=== PATIENT | male | born 1985 | race African-American/Black ===

== ENCOUNTER → 2023-01-02 08:14 | Outpatient (BNVA) | payer OTHER, SELFPAY | PROVIDERS: PCP Internal Medicine; Visit Provider Physician Assistant Surgical ==

== ENCOUNTER 2023-01-30 08:23 | Outpatient (AMB) | payer OTHER, SELFPAY ==
--- NOTE | 2023-01-30 08:32 | A.OFFVIS_ITS ---
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 His goal is to be healthy. He reports first being concerned about his weight since childhood. He has tried multiple methods of weight loss including keto with exercise - was very effective, without permanent results. He lives with his fiance and his 2 children. His sister had LSG with us af ew months ago, and his fiance is in our program now. He works 5- 6 days per week, variable schedule as assembler truck trailer. Works hours 3:30 am to 12 pm. He wakes at: 1 am, bed at 5-6 pm. Also sleeps at home.. Breakfast: 5am - crackers, pastries, sandwich, sunflower seeds -- snacks on these foods until 9-10 am water or Deit Coke. Lunch: 10 am - buys a sandwich and chicken wings and Diet Coke 2pm- Adalgisa has 2 dbl ham burger and a chicken sandwich and Diet Coke Dinner: 4:30 pm - 2 chicken breasts with bbq sauce and 3 corn on the dominguez. water. Vegetables - canned only, 2 d/week. After dinner: nothing after dinner Other snacks: see above Liquids: 3-4 Diet Cokes per day, no fruit juice Alcohol intake: twice a week 1 beer at a time, tobacco: none, marijuana: none Exercise: none,has membership to [employer]: 3 ESS:10 GERD:0 QOL:72 PFS Surgical History History of hip surgery Social History (Updated 08/16/23 @ 08:30 by BROOKLYNN Betts Alcohol intake: current Alcohol intake frequency: holidays/special occasions only Patient Tobacco Use Status: Never used Tobacco Physical Exam Vital Signs: Last Vital Signs Temp 97.6 F 01/30/23 08:39 Pulse 83 01/30/23 08:39 BP 132/74 01/30/23 08:39 Pulse Ox 95 01/30/23 08:39 Oxygen Delivery Method Room Air 01/30/23 08:39 BMI result Body Mass Index 72.7 Const General: cooperative, no acute distress and well developed Nutritional Appearance: obese Orientation/consciousness: patient oriented x3 HEENT Head: Yes normal to inspection Neck Neck: Yes normal visual inspection Thyroid: Thyroid normal Resp Effort & Inspection: normal respiratory effort Auscultation: clear to auscultation bilaterally Cardio Rate: regular rate Rhythm: regular rhythm Heart sounds: S1 normal heart sound present, S2 normal heart sound present and no murmurs GI Inspection: No distended and Yes obesity Palpation (GI): Soft to palpation, nontender and no guarding Skin General skin exam: no rashes or lesions noted and other (warm and dry) Wounds: no wounds Hair: normal Neuro General: patient oriented x3 Extrem General: Yes no pedal edema and Yes no calf tenderness Psych Attitude: cooperative Thought process: Normal thought process present Thought content: Normal thought content present Insight: Good insight present (Psych) Judgement: Good judgement present (Psych) Assessment & Plan Assessment & Plan (1) Morbid obesity: Code(s): E66.01 - Morbid (severe) obesity due to excess calories Plan: This is a 37 yo man with super morbid obesity, HTN, DM on elliquis for hx LLE DVTwho will start SWL program to prepare for bariatric surgery. Blood work, h pylori , CXR, ECG, Abd ULS and UGI have been ordered. She is being scheduled for RD and BH initial consultations. She will start SWL classes and watch at 3 classes before her next appt with Lacie. His fiance is in our program and his sister had LSG with us. Referral made to Hematology at [facility] to evaluate need for continued anticoagulation. 1. Adequate sleep of 7-8 hours per night discussed, with CPAP for at lest 6 hours 2. Healthy meal plan - stop mindless snacking All meals/MR's need to take 20 minutes to complete. Each day - 3 shakes, 1 meal, 1 bar and 1 yogurt for now 3am - shake 5 am -bar 8am - shake 11 am - yogurt or 3 hb eggs 2pm- shake 4:30 pm- dinner of 8 oz lean protein, 8 oz vegetable, 1 serving fruit Will discuss diet Coke at another time. Exercise - Cardio 5 d week = treadmill at speed 3.0, incline 2-6 - to burn 300 calories OR elliptical Will change routine - he will text me weekly. Pt will purchase body composition analyzer (recommended list given to patient) and weight herself weekly. Next appt with me in 3 weeks. Text me with any questions and weekly weights. Patient is morbidly obese and is not considered stable at this time.?I spent a total of 60 minutes reviewing/updating records, examining the patient and counseling the patient on weight management as detailed above. (2) HTN (hypertension), benign: Code(s): I10 - Essential (primary) hypertension (3) Diabetes mellitus: Code(s): E11.9 - Type 2 diabetes mellitus without complications (4) SLOAN on CPAP: Code(s): G47.33 - Obstructive sleep apnea (adult) (pediatric) (5) Hx of deep venous thrombosis: Comment: 2020 after an injury Code(s): Z86.718 - Personal history of other venous thrombosis and embolism (6) Fatty liver: Code(s): K76.0 - Fatty (change of) liver, not elsewhere classified (7) Spinal stenosis: Code(s): M48.00 - Spinal stenosis, site unspecified Orders: Orders Insulin Today E11.9 - Type 2 diabetes mellitus without complications, E66.01 - Morbid (severe) obesity due to excess calories, G47.33 - Obstructive sleep apnea (adult) (pediatric), I10 - Essential (primary) hypertension, K76.0 - Fatty (c hange of) liver, not elsewhere classified, M48.00 - Spinal stenosis, site unspecified, Z86.718 - Personal history of other venous thrombosis and embolism Lipid Panel Today E11.9 - Type 2 diabetes mellitus without complications, E66.01 - Morbid (severe) obesity due to excess calories, G47.33 - Obstructive sleep apnea (adult) (pediatric), I10 - Essential (primary) hypertension, K76.0 - Fatty (change of) liver, not elsewhere classified, M48.00 - Spinal stenosis, site unspecified, Z86.718 - Personal history of other venous thrombosis and embolism IRON PROFILE Today E11.9 - Type 2 diabetes mellitus without complications, E66.01 - Morbid (severe) obesity due to excess calories, G47.33 - Obstructive sleep apnea (adult) (pediatric), I10 - Essential (primary) hypertension, K76.0 - Fatty (change of) liver, not elsewhere classified, M48.00 - Spinal stenosis, site unspecified, Z86.718 - Personal history of other venous thrombosis and embolism Complete Blood Count Auto Diff Today E11.9 - Type 2 diabetes mellitus without complications, E66.01 - Morbid (severe) obesity due to excess calories, G47.33 - Obstructive sleep apnea (adult) (pediatric), I10 - Essential (primary) hypertension, K76.0 - Fatty (change of) liver, not elsewhere classified, M48.00 - Spinal stenosis, site unspecified, Z86.718 - Personal history of other venous thrombosis and embolism Zinc Today E11.9 - Type 2 diabetes mellitus without complications, E66.01 - Morbid (severe) obesity due to excess calories, G47.33 - Obstructive sleep apnea (adult) (pediatric), I10 - Essential (primary) hypertension, K76.0 - Fatty (change of) liver, not elsewhere classified, M48.00 - Spinal stenosis, site unspecified, Z86.718 - Personal history of other venous thrombosis and embolism Comprehensive Met. Panel Today E11.9 - Type 2 diabetes mellitus without complications, E66.01 - Morbid (severe) obesity due to excess calories, G47.33 - Obstructive sleep apnea (adult) (pediatric), I10 - Essential (primary) hypertension, K76.0 - Fatty (change of) liver, not elsewhere classified, M48.00 - Spinal stenosis, site unspecified, Z86.718 - Personal history of other venous thrombosis and embolism C Reactive Protein Today E11.9 - Type 2 diabetes mellitus without complications, E66.01 - Morbid (severe) obesity due to excess calories, G47.33 - Obstructive sleep apnea (adult) (pediatric), I10 - Essential (primary) hypertension, K76.0 - Fatty (change of) liver, not elsewhere classified, M48.00 - Spinal stenosis, site unspecified, Z86.718 - Personal history of other venous thrombosis and embolism Ferritin Today E11.9 - Type 2 diabetes mellitus without complications, E66.01 - Morbid (severe) obesity due to excess calories, G47.33 - Obstructive sleep apnea (adult) (pediatric), I10 - Essential (primary) hypertension, K76.0 - Fatty (change of) liver, not elsewhere classified, M48.00 - Spinal stenosis, site unspecified, Z86.718 - Personal history of other venous thrombosis and embolism PTHI Today E11.9 - Type 2 diabetes mellitus without complications, E66.01 - Morbid (severe) obesity due to excess calories, G47.33 - Obstructive sleep apnea (adult) (pediatric), I10 - Essential (primary) hypertension, K76.0 - Fatty (ch moustapha of) liver, not elsewhere classified, M48.00 - Spinal stenosis, site unspecified, Z86.718 - Personal history of other venous thrombosis and embolism H Pylori Breath Test Today E11.9 - Type 2 diabetes mellitus without complications, E66.01 - Morbid (severe) obesity due to excess calories, G47.33 - Obstructive sleep apnea (adult) (pediatric), I10 - Essential (primary) hypertension, K76.0 - Fatty (change of) liver, not elsewhere classified, M48.00 - Spinal stenosis, site unspecified, Z86.718 - Personal history of other venous thrombosis and embolism Vitamin D 25-OH Total Today E11.9 - Type 2 diabetes mellitus without complications, E66.01 - Morbid (severe) obesity due to excess calories, G47.33 - Obstructive sleep apnea (adult) (pediatric), I10 - Essential (primary) hypertension, K76.0 - Fatty (change of) liver, not elsewhere classified, M48.00 - Spinal stenosis, site unspecified, Z86.718 - Personal history of other venous thrombosis and embolism US abdomen comp w elastography Today E11.9 - Type 2 diabetes mellitus without complications, E66.01 - Morbid (severe) obesity due to excess calories, G47.33 - Obstructive sleep apnea (adult) (pediatric), I10 - Essential (primary) hypertension, K76.0 - Fatty (change of) liver, not elsewhere classified, M48.00 - Spinal stenosis, site unspecified, Z86.718 - Personal history of other venous thrombosis and embolism XR chest 2V Today E11.9 - Type 2 diabetes mellitus without complications, E66.01 - Morbid (severe) obesity due to excess calories, G47.33 - Obstructive sleep apnea (adult) (pediatric), I10 - Essential (primary) hypertension, K76.0 - Fatty (change of) liver, not elsewhere classified, M48.00 - Spinal stenosis, site u nspecified, Z86.718 - Personal history of other venous thrombosis and embolism ECG 12 lead EKG Today E11.9 - Type 2 diabetes mellitus without complications, E66.01 - Morbid (severe) obesity due to excess calories, G47.33 - Obstructive sleep apnea (adult) (pediatric), I10 - Essential (primary) hypertension, K76.0 - Fatty (change of) liver, not elsewhere classified, M48.00 - Spinal stenosis, site unspecified, Z86.718 - Personal history of other venous thrombosis and embolism Vitamin B12 and Folate Today E11.9 - Type 2 diabetes mellitus without complications, E66.01 - Morbid (severe) obesity due to excess calories, G47.33 - Obstructive sleep apnea (adult) (pediatric), I10 - Essential (primary) hypertension, K76.0 - Fatty (change of) liver, not elsewhere classified, M48.00 - Spinal stenosis, site unspecified, Z86.718 - Personal history of other venous thrombosis and embolism Vitamin B1 Today E11.9 - Type 2 diabetes mellitus without complications, E66.01 - Morbid (severe) obesity due to excess calories, G47.33 - Obstructive sleep apnea (adult) (pediatric), I10 - Essential (primary) hypertension, K76.0 - Fatty (change of) liver, not elsewhere classified, M48.00 - Spinal stenosis, site unspecified, Z86.718 - Personal history of other venous thrombosis and embolism Vitamin A Today E11.9 - Type 2 diabetes mellitus without complications, E66.01 - Morbid (severe) obesity due to excess calories, G47.33 - Obstructive sleep apnea (adult) (pediatric), I10 - Essential (primary) hypertension, K76.0 - Fatty (change of) liver, not elsewhere classified, M48.00 - Spinal stenosis, site unspecified, Z86.718 - Personal history of other venous thrombosis and embolism TSH reflex Free T4 Today E11.9 - Type 2 diabetes mellitus without complications, E66.01 - Morbid (severe) obesity due to excess calories, G47.33 - Obstructive sleep apnea (adult) (pediatric), I10 - Essential (primary) hypertension, K76.0 - Fatty (change of) liver, not elsewhere classified, M48.00 - Spinal stenosis, site unspecified, Z86.718 - Personal history of other venous thrombosis and e mbolism Hemoglobin A1c Today E11.9 - Type 2 diabetes mellitus without complications, E66.01 - Morbid (severe) obesity due to excess calories, G47.33 - Obstructive sleep apnea (adult) (pediatric), I10 - Essential (primary) hypertension, K76.0 - Fatty (change of) liver, not elsewhere classified, M48.00 - Spinal stenosis, site unspecified, Z86.718 - Personal history of other venous thrombosis and embolism FL upper GI w air Today E11.9 - Type 2 diabetes mellitus without complications, E66.01 - Morbid (severe) obesity due to excess calories, G47.33 - Obstructive sleep apnea (adult) (pediatric), I10 - Essential (primary) hypertension, K76.0 - Fatty (change of) liver, not elsewhere classified, M48.00 - Spinal stenosis, site unspecified, Z86.718 - Personal history of other venous thrombosis and embolism Referrals Behavioral Health Referral E11.9 - Type 2 diabetes mellitus without compl ications, E66.01 - Morbid (severe) obesity due to excess calories, G47.33 - Obstructive sleep apnea (adult) (pediatric), I10 - Essential (primary) hypertension, K76.0 - Fatty (change of) liver, not elsewhere classified, M48.00 - Spinal stenosis, site unspecified, Z86.718 - Personal history of other venous thrombosis and embolism Hematology & Oncology Referral E66.01 - Morbid (severe) obesity due to excess calories, Z86.718 - Personal history of other venous thrombosis and embolism Nutrition/Dietitian Referral E11.9 - Type 2 diabetes mellitus without complications, E66.01 - Morbid (severe) obesity due to excess calories, G47.33 - Obstructive sleep apnea (adult) (pediatric), I10 - Essential (primary) hypertension, K76.0 - Fatty (change of) liver, not elsewhere classified, M48.00 - Spinal stenosis, site unspecified, Z86.718 - Personal history of other venous thrombosis and embolism Coding Level of Care Code New Pt Level 5 (63881) Diagnoses Morbid obesity E66.01 HTN (hypertension), benign I10 Diabetes mellitus E11.9 SLOAN on CPAP G47.33 Hx of deep venous thrombosis Z86.718 Fatty liver K76.0 Spinal stenosis M48.00
[2023-01-30 08:39] VITALS: BP 132/74; PULSE 83; TEMP 36.4; O2SAT 95; BMI 72.7
== END 2023-01-30 09:48 | disposition home or self-care (01) ==
PROVIDERS: PCP Internal Medicine; Visit Provider Physician Assistant
DX: E66.01 Morbid (severe) obesity due to excess calories (principal); Z68.45 Body mass index [BMI] 70 or greater, adult
CPT/HCPCS: 99205

== ENCOUNTER 2023-01-30 08:23 | Outpatient (REF) | payer OTHER, SELFPAY ==
--- NOTE | ~2023-01-30 | XR_ITS ---
EXAMINATION: XR CHEST 2 VIEWS CLINICAL INFORMATION: Obstructive sleep apnea. COMPARISON: None. TECHNIQUE: Frontal and lateral views of the chest were obtained. FINDINGS: The heart, great vessels, pulmonary vasculature and mediastinum are normal. The lungs show no focal infiltrate, effusion or pneumothorax. There is no acute osseous abnormality. XR/XR chest 2V IMPRESSION: No active cardiopulmonary disease.
--- NOTE | 2023-01-30 10:01 | ECG_ITS ---
Test Reason : g47.33 Blood Pressure : / mmHG Vent. Rate : 080 BPM Atrial Rate : 080 BPM P-R Int : 108 ms QRS Dur : 114 ms QT Int : 392 ms P-R-T Axes : 000 031 000 degrees QTc Int : 452 ms Poor data quality, interpretation may be adversely affected Sinus rhythm with short MI Otherwise normal ECG No previous ECGs available Referred By: Edyta Lambert Electronically Signed By:LAINEY ZARAGOZA
[2023-01-30 10:16] LABS: MANUAL DIFF FLAG NO
[2023-01-30 10:40] LABS: Basophils Absolute Auto 0.1 X10*3/uL (0.0-0.2); Basophils Percent Auto 0.8 % (0-2); Eosinophils Absolute Auto 0.6 X10*3/uL (0.0-0.4); Eosinophils Percent Auto 8.2 % (0-4); Hematocrit 45.2 % (42.0-52.0); Hemoglobin 14.3 g/dl (14.0-18.0); Imm Gran Abs Auto 0.05 X10*3/uL (0.00-0.03); Imm Gran Pct Auto 0.7 % (0.0-0.4); Lymphocytes Absolute Auto 2.1 X10*3/uL (1.2-4.9); Lymphocytes Percent Auto 30.2 % (20-40); Mean Corpuscular HGB Conc 31.6 g/dl (31.0-36.0); Mean Corpuscular Volume 82.3 fL (80.0-98.0); Mean Platelet Volume 11.8 fL (9.4-12.4); Monocytes Absolute Auto 0.5 X10*3/uL (0.1-1.2); Monocytes Percent Auto 7.2 % (2-11); Neutrophils Absolute Auto 3.8 x10*3/uL (2.0-8.3); Neutrophils Percent Auto 52.9 % (45-73); Platelet Count 293 X10*3/uL (160-400); Red Blood Count 5.49 X10*6/uL (4.60-5.80); Red Cell Distribution Width 14.4 % (11.0-16.0); White Blood Count 7.1 X10*3/uL (4.8-10.8)
[2023-01-30 11:00] LABS: Estimated Average Glucose 131 mg/dL; Hemoglobin A1c % 6.2 % (<6.0)
[2023-01-30 11:17] LABS: Alanine Aminotransferase 24 U/L (0-40); Albumin Level 4.3 g/dL (3.5-5.0); Alkaline Phosphatase 55 U/L (39-117); Anion Gap 11 (12-20); Aspartate Amino Transferase 20 U/L (5-37); Bilirubin Total 1.2 mg/dL (0.0-1.0); Blood Urea Nitrogen 18 mg/dL (9-16); Calcium 10.5 mg/dL (8.4-10.2); Carbon Dioxide 27 mmol/L (22-29); Chloride 103 mmol/L (96-108); Cholesterol 174 mg/dL (<200); Estimated Glomerular Filt Rate > 60; Glucose Random 99 mg/dL (60-115); HDL Cholesterol 28 mg/dL (>40); Iron 66 mcg/dL (45-160); LDL Cholesterol Calculated 119 mg/dL (<100); Percent Iron Saturation 21 % (15-50); Potassium 4.6 mmol/L (3.3-5.1); Sodium 136 mmol/L (135-145); Total Iron Binding Capacity 317 mcg/dL (228-428); Total Protein 8.7 g/dL (6.5-8.0); Triglycerides 137 mg/dL (<150); Unsaturated Iron Binding 251 ug/dL
[2023-01-30 11:35] LABS: Ferritin 270 ng/mL (20-250); Insulin 37 uU/mL (2-29); TSH reflex Free T4 1.86 uIU/mL (0.32-4.0); Vitamin D 25-OH Total 24.3 ng/mL (>30)
[2023-01-30 11:39] LABS: Vitamin B12 307 pg/mL (200-900)
[2023-02-01 13:52] LABS: H Pylori Breath Test Negative (Negative)
[2023-02-01 23:58] LABS: Calcium (PTHI) 9.7 mg/dL (8.6-10.3); PTHI 38 pg/mL (16-77)
[2023-02-02 17:13] LABS: Zinc 76 mcg/dL (60-130)
[2023-02-03 15:19] LABS: Vitamin B1 7 nmol/L (8-30)
[2023-02-06 17:43] LABS: Vitamin A 51 mcg/dL (38-98)
== END 2023-01-30 08:24 | disposition home or self-care (01) ==
LOC: HO.LAB 08:23
PROVIDERS: PCP Internal Medicine; Visit Provider Physician Assistant
DX: E66.01 Morbid (severe) obesity due to excess calories (principal); I10 Essential (primary) hypertension; E11.9 Type 2 diabetes mellitus without complications; G47.33 Obstructive sleep apnea (adult) (pediatric); K76.0 Fatty (change of) liver, not elsewhere classified; M48.00 Spinal stenosis, site unspecified; Z86.718 Personal history of other venous thrombosis and embolism
CPT/HCPCS: 36415; 71046; 80053; 80061; 82306; 82607; 82728; 82746; 83013; 83036; 83525; 83540; 83970; 84425; 84443; 84590; 84630; 85025; 86140; 93005; 99211

== ENCOUNTER 2023-02-13 13:49 | Outpatient (AMB) | payer OTHER, SELFPAY ==
--- NOTE | 2023-02-13 13:38 | MHC.AMNUTRGE ---
Intake Intake Visit Reasons: VIDEO Initial Nutrition SW Allergies humolog Allergy (Mild, Uncoded 01/30/23 09:41) Headache HPI Nutrition Presentation Reason for consult elevated BMI Diet Assmnt Details Premier premade shakes at 5am / 8am / 2pm plus apple and 2-3 hardboiled eggs dinner chicken and cabbage - 8oiz each, his weighs on a food scale Has two kids (6 and 7 years old) all they want is Rodriguez daughter has issues with her weight as welll. We talked about trying to change the whole familys eating habits but pt not receptive. tried to help pt recognize that having highly tempting foods around could be triggering Exercise: nothing yet ; pt reports he hasn't even considered this. closed off to discussion. [facility] online classes: none Previous weight loss methods attempted keto 76lbs lost, then ate chaidez and triggered to eat Dietary counseling reduction Who buys your food self Who prepares/cooks your food self Meal frequency regular: breakfast (9am (but starts works 1am)), lunch ([employer] or fast food ), dinner and snacks (snacked all day ) Lifestyle Eating out 4 or more times/week Food frequency Fruit: occasionally, Vegetables: occasionally (broccoli, carrots, green beans ), Grains/pasta/breads/cereal (carbs): daily, Meats/poultry/fish (protein): daily, Meat substitutes/nuts/seeds/legumes: daily, Processed foods/meats: daily, Restaurants/fast foods: daily, Water: daily, Soda: daily (diet coke ) and Coffee: daily (1c per day 32oz ) Diagnosis Nutrition problem #1 overweight/obesity As related to (etiology) #1 excess energy intake and physical inactivity As evidenced by (sign/symptom) #1 high BMI Monitoring/Goals Nutrition problem monitoring total energy intake, HgbA1c, level of knowledge/skill, total PRO intake, glucose, fasting, total CHO intake and weight Outcome progress progressing Learning/Education Readiness to learn good Stages of change action Educational materials provided Yes Most Recent Diabetes Results: Cholesterol 174 mg/dL (<200) 01/30/23 HDL Cholesterol 28 mg/dL (>40) L 01/30/23 Triglycerides 137 mg/dL (<150) 01/30/23 Creatinine 1.12 mg/dL (0.5-1.4) 01/30/23 Blood Urea Nitrogen 18 mg/dL (9-16) H 01/30/23 Sodium 136 mmol/L (135-145) 01/30/23 Potassium 4.6 mmol/L (3.3-5.1) 01/30/23 Chloride 103 mmol/L (96-108) 01/30/23 Carbon Dioxide 27 mmol/L (22-29) 01/30/23 Calcium 10.5 mg/dL (8.4-10.2) H 01/30/23 AST 20 U/L (5-37) 01/30/23 ALT 24 U/L (0-40) 01/30/23 Total Protein 8.7 g/dL (6.5-8.0) H 01/30/23 Albumin 4.3 g/dL (3.5-5.0) 01/30/23 PFSH Surgical History History of hip surgery Social History Alcohol intake: current Alcohol intake frequency: holidays/special occasions only Patient Tobacco Use Status: Never used Tobacco Assessment & Plan Assessment & Plan (1) Morbid obesity: Code(s): E66.01 - Morbid (severe) obesity due to excess calories Patient Instructions: question readiness for WLS. complete online classes and f/u wtih me in 6 weeks Telehealth Telehealth Location of provider rendering services: practice address Location of patient: address on file Patient Identification confirmed using: Name, : Yes Telehealth method: video Patient verbally consented to treatment: Yes Patient verbally consented to billing insurance company: Yes Patient informed of any privacy concerns related to visit: Yes Minutes spent on Phone/Video with Pt.: 30 Coding Level of Care Code Nutr Indiv Intake (17245) Diagnoses Morbid obesity E66.01 Time Spent (min) 30
== END 2023-02-13 13:53 | disposition home or self-care (01) ==
LOC: HO.HBS 13:49
PROVIDERS: PCP Internal Medicine; Visit Provider Dietitian, Registered
DX: E66.01 Morbid (severe) obesity due to excess calories (principal)

== ENCOUNTER → 2023-02-13 13:49 | Outpatient (BNVA) | payer OTHER, SELFPAY | PROVIDERS: PCP Internal Medicine; Visit Provider Dietitian, Registered | DX: E66.01 Morbid (severe) obesity due to excess calories (principal) | CPT/HCPCS: 97802 ==

== ENCOUNTER 2023-03-13 08:52 | Outpatient (REF) | payer OTHER, SELFPAY ==
--- NOTE | ~2023-03-13 | US_ITS ---
EXAMINATION: US COMPLETE ABDOMEN WITH LIVER ELASTOGRAPHY CLINICAL INFORMATION: Obesity; hepatic steatosis. COMPARISON: None available. TECHNIQUE: Real-time imaging of the abdominal viscera. Noninvasive ultrasound liver fibrosis assessment is performed using Rodolfo ElastPQ point quantification shear wave elastography (2D-SWE) with a C5-2 MHz transducer. Multiple elastography samples are obtained. FINDINGS: PANCREAS: Largely obscured by overlapping bowel gas. ABDOMINAL AORTA: The proximal and mid segments are obscured by overlapping bowel gas. The distal segment is normal in caliber. INFERIOR VENA CAVA: Visualized portions are normal. LIVER: The liver demonstrates normal contour and increased echogenicity. No focal lesion or intrahepatic biliary duct dilatation. The right lobe measures 26.8 cm in length. The left lobe measures 8.8 cm in length. Portal flow is towards the liver (hepatopetal). Shear wave liver elastography median stiffness is 1.84 m/s (reference: normal median stiffness is 1.3 m/s or less). IQR/median stiffness to assess sampling precision is 0.09 (reference: good quality data set is IQR/median stiffness of 0.15 or less). GALLBLADDER: There is mild gallbladder sludge. The gallbladder is physiologically distended without evidence of stones, polyps, wall thickening or pericholecystic fluid. COMMON BILE DUCT: Normal in caliber measuring 0.4 cm in diameter. RIGHT KIDNEY: Normal. No hydronephrosis. No renal calculi or focal parenchymal lesions. The kidney measures 13.8 cm in maximum dimension. LEFT KIDNEY: Normal. No hydronephrosis. No renal calculi or focal parenchymal lesions. The kidney measures 14.7 cm in maximum dimension. SPLEEN: Normal. The spleen measures 15.6 cm in maximum dimension. FREE FLUID: None. US/US abdomen comp w elastography IMPRESSION: 1. There is hepatosplenomegaly. 2. There is generalized increase in hepatic echotexture, consistent with fatty infiltration or hepatocellular disease. Please correlate clinically. No focal hepatic mass or intrahepatic biliary dilatation is seen. 3. Liver elastography: Measurements are suggestive of compensated advanced chronic liver disease but need further test for confirmation. 4. Technically limited ultrasound examination of the pancreas and abdominal great vessels. REFERENCE: Society of Radiologists in Ultrasound Liver Stiffness Thresholds (2020): LIVER STIFFNESS THRESHOLDS: *Liver Stiffness equal or less than 1.3 m/s: High probability of being normal. *Liver Stiffness less than 1.7 m/s: In the absence of other known clinical signs, rules out compensated advanced chronic liver disease. *Liver Stiffness 1.7-2.1 m/s: Suggestive of compensated advanced chronic liver disease but need further test for confirmation. *Liver Stiffness over 2.1 m/s: Rules in compensated advanced chronic liver disease. *Liver Stiffness over 2.4 m/s: Suggestive of clinically significant portal hypertension. QUALITY OF DATA SET: *IQR/Median value equal or less than 0.15 implies a quality data set. *IQR/Median value over 0.15 implies a poor quality data set. SIGNIFICANT CHANGE FROM PRIOR EXAM: Significant change if liver stiffness measurement is 10% or greater from prior exam. OTHER CONSIDERATIONS: The stage of liver fibrosis may be overestimated in the setting of acute hepatitis, liver inflammation, elevated liver function tests, hepatic vascular congestion, obstructive cholestasis, non-fasting state, and infiltrative diseases such as amyloidosis and lymphoma. In some patients with NAFLD, the liver stiffness thresholds for compensated advanced chronic liver disease may be lower. In causes other than viral hepatitis and NAFLD, liver stiffness thresholds are not well established.
== END 2023-03-13 08:53 | disposition home or self-care (01) ==
LOC: HO.US 08:52
PROVIDERS: PCP Internal Medicine; Visit Provider Physician Assistant
DX: E66.01 Morbid (severe) obesity due to excess calories (principal); M48.00 Spinal stenosis, site unspecified; K76.0 Fatty (change of) liver, not elsewhere classified; E11.9 Type 2 diabetes mellitus without complications; I10 Essential (primary) hypertension; Z86.718 Personal history of other venous thrombosis and embolism; G47.33 Obstructive sleep apnea (adult) (pediatric)
CPT/HCPCS: 76705; 76981

== ENCOUNTER 2023-03-26 14:06 | Outpatient (AMB) | payer OTHER, SELFPAY ==
--- NOTE | 2023-03-26 14:05 | A.OFFWM_ITS ---
Intake Intake Visit Reasons: VIDEO Intake Allergies humolog Allergy (Mild, Uncoded 01/30/23 09:41) Headache PFSH Surgical History History of hip surgery Social History Alcohol intake: current Alcohol intake frequency: holidays/special occasions only Patient Tobacco Use Status: Never used Tobacco Behavioral Health Assessment Weight Management Therapy Therapy Notes Details Patient is looking to have weight loss surgery to help improve his health and quality of life. Pt denied any mental health history of any kind, he denied every being in therapy or on medication. Patient stated that he struggles with low energy and motivation. He denied any history of problems with drugs or alcohol. Presenting Concerns Referral Source provider Reason for referral weight loss surgery evaluation Precipitating Event obesity Living Situation Current Living Situation Own At risk of losing current housing? No Satisfied with current living situation? Yes Comments Pt lives with his yovanny and two children. Food/Weight/Diet Expectations of change weight loss and maintenance History/Relationship with food Patient reported that his weakness is fast and easy food from the drive through. History/Relationship with weight Pt has been overweight since childhood. History/Relationship with dieting keto, lost weight Binge Eating Do you frequently eat large amounts of food in short periods of time, not feeling physically hungry? No Do you feel out of control when you eat a large amount of food in a short period of time? No Do you eat large amounts of food rapidly and typically alone? Yes Night Eating Do you wake up at least once during the night to eat? No If you wake up in the night, do you find that it is necessary to eat something in order to fall back asleep? No Do you have little or no appetite in the morning and feel very hungry in the evening, often overeating between dinner and when you go to bed? Yes Social History Family history and relationship Patient has been with his prieto? for 14 years and they have two children together ages 7, and 8. 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 who is also in the program, sister also had the surgey Cultural/Ethnic information Legal Involvement and History Current or historical involvement with the legal system? none Education Highest grade completed high school diploma Preferred learning style Auditory, Verbal, Written, Learn by doing and Visual Currently enrolled in educational program? No Interested in further educational program? 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 No Meaningful activities He stated that he is always too tired to do anything and only has one day off. Financial Situation Describe current financial situation Comfortable and Occasional struggle Financial assistance? None Service Service? No Mental Health and Addiction Treatment Current/Past substance abuse? No Current/Past addictive behavior concerns? No Pain Screening Current pain? No Pain in the last few months? No Medications Is the patient compliant with medications? Yes Does the patient have Bobby Guardian in place? Not applicable Does the patient use complimentary health approaches? No Questionnaires PHQ-9 Over the last 2 weeks, how often have you been bothered by any of the following problems? 1. Little interest or pleasure in doing things: more than half the days 2. Feeling down, depressed, or hopeless: several days 3. Trouble falling or staying asleep, or sleeping too much: nearly every day 4. Feeling tired or having little energy: several days 5. Poor appetite or overeating: nearly every day 6. Feeling bad about yourself - or that you are a failure or have let yourself or your family down: several days 7. Trouble concentrating on things, such as reading the newspaper or watching television: not at all 8. Moving or speaking so slowly that other people could have noticed. Or the opposite - being so fidgety or restless that you have been moving around a lot more than usual: not at all 9. Thoughts that you would be better off or of hurting yourself in some way: not at all Total score: 11 Source: Developed by Drs. Denny Soriano, Deanna Lepe, Jean Chao and colleagues, with an educational felicita from [employer]. Binge Eating Scale Group 1 A. I don't feel self-conscious about my wt. or body size when I'm with others. B. I feel concerned about how I look to others, but it normally does not make me fell disappointed with myself C. I do get self-conscious about my appearance and wt. which makes me feel disappointed in myself. D. I feel very self-conscious about my wt. and frequently I feel intense shame and disgust for myself. I try to avoid social contacts because of my self- consciousness. Response Group 1: B Group 2 A. I don't have any difficulty eating slowly in the proper manner. B. Although I seem to gobble down foods, I don't end up feeling stuffed because of eating to much. C. At times, I tend to eat quickly and then, I feel uncomfortably full afterwards. D. I have the habit of bolting down my food, without really chewing it. When this happens I usually feel uncomfortably stuffed because I've eaten to much. Response Group 2: D Group 3 A. I feel capable to control my eating urges when I want to. B. I feel like I have failed to control my eating more than the average person. C. I feel utterly helpless when it comes to feeling in control of my eating urges. D. Because I feel so helpless about controlling my eating I have become very desperate about trying to get control. Response Group 3: B Group 4 A. I don't have the habit of eating when I'm bored. B. I sometimes eat when I'm bored, but often I'm able to get busy and get my mind off food. C. I have a regular habit of eating when I'm bored, but occasionally, I can use some other activity to get my mind off eating. D. I have a strong habit of eating when I'm bored. Nothing seems to help me breath the habit. Response Group 4: A Group 5 A. I'm usually physically hungry when I eat something. B. Occasionally, I eat something on impulse even though I really am not hungry. C. I have the regular habit of eating foods, that I might not really enjoy, to satisfy a hungry feeling even though physically, I don't need the food. D. Although I'm not physically hungry, I get a hungry feeling in my mouth that only seems to be satisfied when I eat a food, like sandwich, that fills my mouth. Sometimes, when I eat the food to satisfy my mouth hunger, I then spit the food out so I won't gain weight. Response Group 5: B Group 6 A. I don't feel any guilt or self-hate after I overeat. B. After I overeat, occasionally I feel guilt or self-hate. C. Almost all the time I experience strong guilt or self-hate after I overeat. Response Group 6: A Group 7 A. I don't lose total control of my eating when dieting even after periods when I overeat. B. Sometimes when I eat a forbidden food on a diet, I feel like I blew it and eat even more. C. Frequently, I have the habit of saying to myself, I've blown it now, why not go all the way, when I overeat on a diet. When that happens I eat more. D. I have a regular habit of starting a strict diets for myself but I break the diets by going on an eating binge. My life seems to be either a feast or famine. Response Group 7: A Group 8 A. I rarely eat so much food that I feel uncomfortably stuffed afterwards. B. Usually about once a month, I each such a quantity of food, I end up feeling very stuffed. C. I have regular periods during the month when I eat large amounts of food, either at mealtime or at snacks. D. I eat so much food that I regularly feel quite uncomfortable after eating and sometimes a bit nauseous. Response Group 8: C Group 9 A. My level of calorie intake does not go up very high or go down very low on a regular basis. B. Sometimes after I overeat, I will try to reduce my caloric intake to almost nothing to compensate for the excess calories I've eaten. C. I have a regular habit of overeating during the night. It seems that my rout ine is not to be hungry in the morning but overeat in the evening. D. In my adult years, I have had week-long periods where I practically starve myself. This follows periods when I overeat. It seems I live a life of either feast or famine. Response Group 9: A Group 10 A. I usually am able to stop eating when I want to. I know when enough is enough. B. Every so often, I experience a compulsion to eat which I can't seem to control. C. Frequently, I experience strong urges to eat which I seem unable to control, but at other times I can control my eating urges. D. I feel incapable of controlling urges to eat. I have a fear of not being able to stop eating voluntarily. Response Group 10: C Group 11 A. I don't have any problem stopping eating when I feel full. B. I usually can stop eating when I feel full but occasionally overeat leaving me feeling uncomfortably stuffed. C. I have a problem stopping eating once I start and usually I feel uncomfortably stuffed after I eat a meal. D. Because I have a problem not being able to stop eating when I want, I sometimes have to induce vomiting to relieve my stuffed feeling. Response Group 11: A Group 12 A. I seem to eat just as much when I'm with others, Family social gatherings as when I'm by myself. B. Sometimes, when I'm with other persons, I don't eat as much as I want to eat because I'm self-conscious about my eating. C. Frequently, I eat only a small amount of food when others are present, because I'm very embarrassed about my eating. D. I feel so ashamed about overeating that I pick times to overeat when I know no one will see me. I feel like a closet eater. Response Group 12: A Group 13 A. I eat three meals a day with only an occasional between meal snack. B. I eat 3 meals a day, but I also normally snack between meals. C. When I am snacking heavily, I get in the habit of skipping regular meals. D. There are regular periods when I seem to be continually eating, with no planned meals. Response Group 13: D Group 14 A. I don't think much about trying to control unwanted eating urges. B. At least some of the time, I feel my thoughts are pre-occupied with trying to control my eating urges. C. I feel that frequently I spend much time thinking about how much I ate or about trying not to eat anymore. D. It seems to me that most of my waking hours are pre-occupied by thoughts about eating or not eating. I feel like I'm constantly struggling not to eat. Response Group 14: A Group 15 A. I don't think about food a great deal. B. I have strong craving for food but they last only for brief periods of time. C. I have days when I can't seem to think about anything else but food. D. Most of my days seem to be pre-occupied with thoughts about food. I feel like I live to eat. Response Group 15: B Group 16 A. I usually know whether or not I'm physically hungry. I take the right portion of food to satisfy me. B. Occasionally, I feel uncertain about knowing whether or not I'm physically hungry. A these times it's hard to know how much food I should take to satisfy me. C. Even though I might know how many calories I should eat, I don't have any idea what is a normal amount of food for me. Response Group 16: A Binge Eating Score: 14 Score less than 17 Minimal Risk Score between 18-26 Moderate Risk Score between 27-46 High Risk Assessment & Plan Assessment & Plan (1) Adjustment disorder, unspecified: Code(s): F43.20 - Adjustment disorder, unspecified (2) Morbid obesity: Code(s): E66.01 - Morbid (severe) obesity due to excess calories Plan Patient denied any mental health history and did not present with any major barriers. He is cleared for surgery when ready. Telehealth Telehealth Location of provider rendering services: other Location of patient: address on file Patient Identification confirmed using: Name, : Yes Telehealth method: video Patient verbally consented to treatment: Yes Patient verbally consented to billing insurance company: Yes Patient informed of any privacy concerns related to visit: Yes Minutes spent on Phone/Video with Pt.: 45 Coding Level of Care Code Tele Psy Diag Eval (44314) Diagnoses Adjustment disorder, unspecified F43.20 Morbid obesity E66.01 Time Spent (min) 45
== END 2023-03-26 14:35 | disposition home or self-care (01) ==
LOC: HO.HBST 14:06
PROVIDERS: PCP Internal Medicine; Visit Provider Counselor Mental Health
DX: F43.20 Adjustment disorder, unspecified (principal); E66.01 Morbid (severe) obesity due to excess calories
CPT/HCPCS: 90791

== ENCOUNTER → 2023-03-26 14:06 | Outpatient (BNVA) | payer OTHER, SELFPAY | PROVIDERS: PCP Internal Medicine; Visit Provider Counselor Mental Health ==